=== PATIENT | female | born 1985 | race Caucasian/White ===

== ENCOUNTER 2024-08-10 22:27 | Emergency (ER) | payer OTHER, SELFPAY ==
--- NOTE | 2024-08-10 | ECG_ITS ---
Test Reason : HIGH BP Blood Pressure : */* mmHG Vent. Rate : 95 BPM Atrial Rate : 95 BPM P-R Int : 128 ms QRS Dur : 74 ms QT Int : 364 ms P-R-T Axes : 72 18 17 degrees QTcB Int : 457 ms Normal sinus rhythm Cannot rule out Anterior infarct , age undetermined Abnormal ECG No previous ECGs available Referred By: Generic ED Physician Electronically Signed By: CARROLL SMITH
--- NOTE | ~2024-08-10 | XR_ITS ---
CLINICAL HISTORY: cough and Leukocytosis R O pneumonia 1 view chest x-ray Comparison: None Findings: The lungs are clear. Heart size is normal. No acute fracture. IMPRESSION: 1. No acute findings. This document has been electronically signed by: Breana Moore MD on 08/11/2024 05:31:37
--- NOTE | ~2024-08-10 | CT_ITS ---
CLINICAL HISTORY: headache CT head without contrast Comparison: None Findings: No midline shift, hydrocephalus, or acute hemorrhage. Expanded appearance of the sella with CSF density. No significant atrophy-like change or white matter disease. Atypical appearance of the sinuses. The left middle turbinate is absent. Findings may be postsurgical in nature. Posterior wall of the sphenoid sinus anterior to the sella is absent, postsurgical versus congenital. The appearance is not erosive. The orbits are within normal limits. No skull fracture. IMPRESSION: 1. Expanded sella. Further evaluation with MRI brain with and without contrast recommended to assess for mass. 2. Atypical appearance of the sinuses with absence of the left middle turbinate. In addition the anterior wall of the sella/posterior sphenoid sinus wall is absent. This could be a congenital or postoperative finding. This document has been electronically signed by: Breana Moore MD on 08/11/2024 05:40:35
[2024-08-10 22:36] VITALS: BP 167/132; PULSE 100; RESP 18; TEMP 37.1; O2SAT 100; BMI 32.6
[2024-08-10 23:08] LABS: MANUAL DIFF FLAG NO
[2024-08-10 23:09] LABS: Basophils Absolute Auto 0.1 X10*3/uL (0.0-0.2); Basophils Percent Auto 0.5 % (0-2); Eosinophils Absolute Auto 0.1 X10*3/uL (0.0-0.4); Eosinophils Percent Auto 0.5 % (0-4); Hematocrit 42.3 % (37.0-47.0); Hemoglobin 14.6 g/dl (12.0-16.0); Imm Gran Abs Auto 0.06 X10*3/uL (0.00-0.03); Imm Gran Pct Auto 0.4 % (0.0-0.4); Lymphocytes Absolute Auto 1.6 X10*3/uL (1.2-4.9); Lymphocytes Percent Auto 10.9 % (20-40); Mean Corpuscular HGB Conc 34.5 g/dl (31.0-35.0); Mean Corpuscular Hemoglobin 31.6 pg (27.0-33.0); Mean Corpuscular Volume 91.6 fL (80.0-98.0); Mean Platelet Volume 9.6 fL (9.4-12.3); Monocytes Absolute Auto 1.3 X10*3/uL (0.1-1.2); Monocytes Percent Auto 9.4 % (2-11); Neutrophils Absolute Auto 11.1 x10*3/uL (2.0-8.3); Neutrophils Percent Auto 78.3 % (45-73); Platelet Count 332 X10*3/uL (160-400); Red Blood Count 4.62 X10*6/uL (4.20-5.50); Red Cell Distribution Width 12.9 % (11.0-16.0); White Blood Count 14.2 X10*3/uL (4.8-10.8)
[2024-08-10 23:24] LABS: Alanine Aminotransferase 21 U/L (0-31); Albumin Level 4.6 g/dL (3.5-5.0); Alkaline Phosphatase 95 U/L (39-117); Anion Gap 12 (12-20); Aspartate Amino Transferase 25 U/L (5-31); Bilirubin Total 0.5 mg/dL (0.0-1.0); Blood Urea Nitrogen 15 mg/dL (9-16); Calcium 9.9 mg/dL (8.4-10.2); Carbon Dioxide 25 mmol/L (22-29); Chloride 105 mmol/L (96-108); Creatinine Clr Calc Pharmacy 97.1; Estimated Glomerular Filt Rate > 60; Glucose Random 79 mg/dL (60-115); Lipase 26 U/L (8-78); Magnesium 2.3 mg/dL (1.6-2.6); Potassium 3.4 mmol/L (3.3-5.1); Sodium 139 mmol/L (135-145); Total Protein 8.2 g/dL (6.5-8.0)
[2024-08-10 23:31] LABS: Troponin-I High Sensitivity 3.5 ng/L (<3.5-17.0)
[2024-08-11 02:13] VITALS: BP 175/111; PULSE 105; RESP 18; TEMP 37.2; O2SAT 100
[2024-08-11 04:30] VITALS: BP 166/108; PULSE 97; RESP 18; TEMP 36.3; O2SAT 96
--- NOTE | 2024-08-11 04:40 | ED.GENADULT ---
HPI - General Adult General Chief complaint: Headache Stated complaint: stress/headache/dizziness Time Seen by Provider: 08/11/24 04:22 Source: patient Mode of arrival: ambulatory Limitations: no limitations History of Present Illness ED Provider: DR. Valadez HPI narrative: 39-year-old female came in for evaluation of upper back and neck pain with headache. 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 Patient is an active smoker been having coughing. Patient is facing financial problems causing her to be stressed out Related Data Previous Rx's ?Medication ?Instructions ?Recorded amlodipine 5 mg tablet 5 mg PO DAILY #20 tabs 08/11/24 Allergies Allergy/AdvReac Type Severity Reaction Status Date / Time No Known Allergies Allergy Verified 08/10/24 22:39 Review of Systems Review of Systems: All other systems are reviewed and are negative Constitutional: Reports as per HPI and Reports no additional constitutional complaints Eyes: Reports as per HPI and Reports no additional eye complaints Reports system reviewed and no additional complaints, except as documented Cardiovascular: Reports as per HPI and Reports no additional cardiovascular complaints Respiratory: Reports as per HPI and Reports no additional respiratory complaints Gastrointestinal: Reports as per HPI and Reports no additional gastrointestinal complaints Genitourinary: Reports no additional female genitourinary complaints Musculoskeletal: Reports no additional musculoskeletal complaints Skin/Breast: Reports system reviewed and no additional complaints, except as docu Psychiatric: Reports no additional psychiatric complaints Endocrine: Reports no additional endocrine complaints Hematologic/Lymphatic: Reports no additional hematologic/lymphatic complaints Allergic/Immunologic: Reports no additional allergic/immunologic complaints Reports system reviewed and no additional complaints, except as documented and Reports Abnormal speech present [facility] Social History Social History Smoked in Last 30 Days: Yes Use of substances other than those prescribed or required for medical reasons: No Advance Directives: No Advance Directives Information Provided: Yes Do you have a plan to hurt others: No Plan Physical Exam ED Vital Signs: Vital Signs - 24 hr 08/10/24 22:36 08/11/24 02:13 08/11/24 04:30 Temperature 98.7 F 99 F 97.3 F Pulse Rate 100 105 H 97 Respiratory Rate 18 18 18 Blood Pressure 167/132 H 175/111 H 166/108 H Pulse Oximetry 100 100 96 Oxygen Delivery Method Room Air Room Air Room Air 08/11/24 05:58 08/11/24 06:05 Temperature 98.2 F Pulse Rate 95 Respiratory Rate 16 Blood Pressure 230/153 H 230/153 H Pulse Oximetry 100 Oxygen Delivery Method Room Air BMI result Body Mass Index 32.6 Vital signs have been reviewed and appear to be correct. Blood pressure elevated. Heart rate normal. Respiratory rate normal. Temperature normal. Oxygen saturation normal. Appearance: Alert. Oriented X3. No acute distress. Head: Normal external exam. Normocephalic. Atraumatic. No Nolasco signs noted. No raccoon eyes noted Eyes: PERRLA. EOMI. Conjunctiva and sclera normal. Eyelids normal. ENT: TM's Normal. Pharynx normal. Uvula midline. Moist mucous membranes. No trismus noted. No drooling noted. No muffled voice noted. Neck: Normal inspection. Neck supple. FROM. No adenopathy. Thyroid Normal. No meningeal signs. No neck mass noted. CVS: Normal heart rate and rhythm. Heart sound normal. No murmurs noted. Pulses normal throughout. Respiratory: No respiratory distress. Painless inspiration. Breath sounds normal. No wheezes/rales/rhonchi noted. Chest nontender. No accessory muscle usage noted or decreased air movement noted. Abdomen: Soft and nontender. Bowel sounds normal in all 4 quadrants. No distention noted. No organomegaly noted. No visible injury noted. Back: No CVA tenderness. Full range of motion noted. Skin: Skin warm and dry. Normal skin color. Normal skin turgor. No rashes/lesions/lacerations noted. Extremities: No lower extremity edema. Extremities exhibit normal range of motion. Extremities nontender. Neuro: Mental status: Normal attention, orientation, memory, and affect. Cranial nerves: Pupils are equal, round and reactive to light, EOMI, visual joaquin are fall, face is symmetric, facial sensations are normal. Motor examination normal muscle tone, strength to 4 extremities. DTR are +2, planter's are flexor. Sensory exam; normal coordination, no ataxia, gait stable. Cerebellar exam: [id number] and [id number] is normal. Extrapyramidal system: No tremors, no rigidity with normal facial expressions. Pronator drift not present. Course Reevaluation(s) Reevaluation #1: 39-year-old female was just evicted from her apartment has no place to go with her son. Headache which is chronic for the patient patient is known to have pituitary benign tumor that has been followed by her PCP patient was instructed to follow-up with her PCP. Hypertension will consider adding amlodipine to her medication and patient to follow-up with her PCP. Muscular neck and upper back pain feels better with oxycodone. Leukocytosis likely secondary to stress workup reveals no source of infection. Blood pressure now is 191/113 Time: 06:38 Medications Administered Discontinued Medications Generic Name Dose Route Start Last Admin Trade Name Freq PRN Reason Stop Dose Admin Amlodipine Besylate 5 mg 08/11/24 06:01 08/11/24 06:05 Amlodipine Besylate 5 Mg Tablet PO 08/11/24 06:02 5 mg ONCE ONE Administration Protocol Oxycodone HCl 5 mg 08/11/24 06:01 08/11/24 06:05 Oxycodone Hcl Immed Release 5 Mg Tablet PO 08/11/24 06:02 5 mg ONCE ONE Administration Medical Decision Making Differential Diagnosis Differential Diagnoses: The differential diagnosis associated with the presentation includes (Intracranial bleed, hypertensive urgency, hypertensive emergency, essential hypertension, electrolyte derangement, severe anemia.) Admission/Observation Consideration of admission/observation: Escalation of care including admission/observation considered Lab Data MDM Lab Attestation statement: I reviewed the patient's lab results. 08/10/24 22:53 08/10/24 22:53 Labs: Lab Results 08/10/24 08/11/24 Range/Units 22:53 04:48 WBC 14.2 H (4.8-10.8) X10*3/uL RBC 4.62 (4.20-5.50) X10*6/uL Hgb 14.6 (12.0-16.0) g/dl Hct 42.3 (37.0-47.0) % MCV 91.6 (80.0-98.0) fL MCH 31.6 (27.0-33.0) pg MCHC 34.5 (31.0-35.0) g/dl RDW 12.9 (11.0-16.0) % Plt Count 332 (160-400) X10*3/uL MPV 9.6 (9.4-12.3) fL Immature Gran % (Auto) 0.4 (0.0-0.4) % Neut % (Auto) 78.3 H (45-73) % Lymph % (Auto) 10.9 L (20-40) % [place] % (Auto) 9.4 (2-11) % Eos % (Auto) 0.5 (0-4) % Baso % (Auto) 0.5 (0-2) % Lymph # (Auto) 1.6 (1.2-4.9) X10*3/uL [place] # (Auto) 1.3 H (0.1-1.2) X10*3/uL Eos # (Auto) 0.1 (0.0-0.4) X10*3/uL Baso # (Auto) 0.1 (0.0-0.2) X10*3/uL Abs Immat Gran (auto) 0.06 H (0.00-0.03) X10*3/uL Absolute Neuts (auto) 11.1 H (2.0-8.3) x10*3/uL Absolute Nucleated RBC 0.000 (0.0-0.012) X10*3/uL Nucleated RBC % (auto) 0.0 (0.0-0.2) /100WBC Sodium 139 (135-145) mmol/L Potassium 3.4 (3.3-5.1) mmol/L Chloride 105 (96-108) mmol/L Carbon Dioxide 25 (22-29) mmol/L Anion Gap 12 (12-20) BUN 15 (9-16) mg/dL Creatinine 0.81 (0.5-1.4) mg/dL Estim Creat Clear Calc 97.1 Estimated GFR > 60 Random Glucose 79 (60-115) mg/dL Calcium 9.9 (8.4-10.2) mg/dL Magnesium 2.3 (1.6-2.6) mg/dL Total Bilirubin 0.5 (0.0-1.0) mg/dL AST 25 (5-31) U/L ALT 21 (0-31) U/L Alkaline Phosphatase 95 (39-117) U/L Troponin I High Sens 3.5 (<3.5-17.0) ng/L Total Protein 8.2 H (6.5-8.0) g/dL Albumin 4.6 (3.5-5.0) g/dL Lipase 26 (8-78) U/L Urine Color Yellow Urine Appearance Clear Urine pH 6.0 (5.0-9.0) Ur Specific [place] 1.025 (1.005-1.025) Urine Protein 30 (1+) H (Neg-Trace) mg/dL Urine Glucose (UA) 100 H (Negative) mg/dL Urine Ketones 15 (Negative) mg/dL Urine Blood Trace H (Negative) Urine Nitrite Negative (Negative) Ur Leukocyte Esterase Negative (Negative) Urine RBC 11-20 H (0-2) /HPF Urine WBC 0-5 (0-5) /HPF Ur Squamous Epith Cells 6-10 (0-2) /HPF Urine Bacteria Trace (None Seen) Hyaline Casts 0-2 (0-2) /LPF Urine Test NEGATIVE (NEGATIVE) Influenza Type A (PCR) NEGATIVE (Negative) Influenza Type B (PCR) NEGATIVE (Negative) RSV RNA Qual (PCR) NEGATIVE (Negative) SARS-CoV-2 RNA (RT-PCR) NEGATIVE (Negative) Independent Interpretation I performed an independent interpretation of an: Plain X-Ray (Chest: No acute findings.) and CT Scan (Head:1. Expanded sella. Further evaluation with MRI brain with and without contrast recommended to assess for mass. 2. Atypical appearance of the sinuses with absence of the left middle turbinate. In addition the anterior wall of the sella/posterior sphenoid sinus wall is absent. This could be a ) Radiology Impression Discussion of test interpretation with radiology: I have reviewed the radiologist's reading. Discharge Plan Discharge Clinical Impression: Essential hypertension, Headache, Stress and adjustment reaction Patient Disposition: Home, Self-Care Instructions: Hypertension (ED) Additional Instructions: Follow-up with PCP. Take the medicine as instructed. Prescriptions: New amlodipine 5 mg tablet 5 mg PO DAILY Qty: 20 0RF Print Language: Greek
[2024-08-11 04:57] LABS: Appearance Urine Clear; Color Urine Yellow; Glucose Urine UA 100 mg/dL (Negative); Leukocyte Esterase Urine Negative (Negative); Nitrite Urine Negative (Negative); Specific Gravity - Urine 1.025 (1.005-1.025); UMIC TRIGGER UACC YES; Urine Blood Trace (Negative); Urine Ketones 15 mg/dL (Negative); Urine Protein 30 (1+) mg/dL (Neg-Trace)
[2024-08-11 04:58] LABS: UPreg QC Valid YES; Urine Pregnancy NEGATIVE (NEGATIVE)
[2024-08-11 05:01] LABS: Bacteria Urine Trace (None Seen); Hyaline Casts Urine 0-2 /LPF (0-2); WBC Urine 0-5 /HPF (0-5)
[2024-08-11 05:32] LABS: Influenza A PCR NEGATIVE (Negative); Influenza B PCR NEGATIVE (Negative); Resp Syncy Virus RNA Qual PCR NEGATIVE (Negative); SARS COV2 PCR INHOUSE NEGATIVE (Negative)
[2024-08-11 05:58] VITALS: BP 230/153; PULSE 95; RESP 16; TEMP 36.8; O2SAT 100
[2024-08-11 06:05] VITALS: BP 230/153
[2024-08-11] MEDS: oxyCODONE HCl Immed Release 5 MG TABLET PO (06:05)
[2024-08-11] MEDS: amLODIPine Besylate 5 MG TABLET PO (06:05)
--- NOTE | 2024-08-11 06:09 | PC.NURSE ---
Pt reports 10/10 headache and back pain. Pt medicated per mar Pts son at bedside Plan of care ongoing.
[2024-08-11 08:40] VITALS: BP 165/113; PULSE 109; RESP 18; TEMP 36.8; O2SAT 98
[2024-08-11 08:41] VITALS: BP 165/113; PULSE 109; RESP 18; TEMP 36.8; O2SAT 98
== END 2024-08-11 08:54 | disposition home or self-care (01) ==
PROVIDERS: Emergency Provider Emergency Medicine
DX: I10 Essential (primary) hypertension (principal); R51.9 Headache, unspecified; R05.9 Cough, unspecified; F43.29 Adjustment disorder with other symptoms; Z03.818 Encounter for observation for suspected exposure to other biological agents ruled out; Z72.89 Other problems related to lifestyle; Z59.811 Housing instability, housed, with risk of homelessness
CPT/HCPCS: 0241U; 36415; 70450; 71045; 80053; 81001; 81025; 83690; 83735; 84484; 85025; 93005; 99284; 99285

== ENCOUNTER → 2024-08-10 22:47 | Outpatient (BNV) | payer OTHER, SELFPAY | PROVIDERS: Emergency Provider Emergency Medicine; Visit Provider Internal Medicine | DX: R94.31 Abnormal electrocardiogram [ECG] [EKG] (principal) | CPT/HCPCS: 93010 ==

== ENCOUNTER → 2024-08-11 04:31 | Outpatient (BNV) | payer OTHER, SELFPAY | PROVIDERS: Emergency Provider Emergency Medicine; Visit Provider Radiology Diagnostic Radiology | DX: R51.9 Headache, unspecified (principal); R05.9 Cough, unspecified; D72.829 Elevated white blood cell count, unspecified | CPT/HCPCS: 70450; 71045 ==